=== PATIENT | female | born 1955 | race American Indian/Alaskan Native ===

== ENCOUNTER 2017-11-24 06:46 | Day surgery (SDC) | payer MEDICARE, MEDICAID ==
[2017-11-24 07:29] VITALS: BMI 31.1
[2017-11-24] MEDS ORDERED: Propofol 10 mg/ml Inj (20 ML) ONE ×2 (08:40→09:14)
[2017-11-24] MEDS ORDERED: Sodium Chloride 0.9% 1,000 ML IV SCH (09:30)
[2017-11-24 09:40] VITALS: RESP 16
[2017-11-24] MEDS ORDERED: Simethicone 40 mg/0.6 ml Liquid (30 ml) PO ONE (10:50)
[2017-11-24 11:00] VITALS: BP 117/56; PULSE 61; TEMP 97.1; O2SAT 98
== END 2017-11-24 11:36 | disposition home or self-care (01) ==
LOC: ENDO 06:46
PROVIDERS: ATTEND Specialist
DX: K63.5 Polyp of colon (principal); K57.30 Diverticulosis of large intestine without perforation or abscess without bleeding; K64.8 Other hemorrhoids; D50.9 Iron deficiency anemia, unspecified; E11.9 Type 2 diabetes mellitus without complications; I10 Essential (primary) hypertension
CPT/HCPCS: 45380; 82948; 88305; J2704; J7030